=== PATIENT | female | born 1960 | race Caucasian/White ===

== ENCOUNTER 2018-07-24 05:19 | Inpatient (IN) | payer OTHER ==
[2018-07-23 09:22] LABS: BASOPHILS % 0.5 % (0.0-1.0); EOSINOPHILS # (AUTO) 0.2 (0.0-0.4); EOSINOPHILS % 2.5 % (0.0-6.0); HEMATOCRIT 43.2 % (34.2-44.1); HEMOGLOBIN 13.9 g/dL (12.0-16.0); LYMPHOCYTES # (AUTO) 1.5 (1.0-3.2); LYMPHOCYTES % 23.5 % (18.0-39.1); MEAN CORPUSCULAR HEMOGLOBIN 29.4 pg (28-32); MEAN CORPUSCULAR HGB CONC 32.2 g/dL (31-35); MEAN CORPUSCULAR VOLUME 91.3 fL (81-99); MONOCYTES # (AUTO) 0.5 (0.2-0.8); MONOCYTES % 7.6 % (4.4-11.3); NEUTROPHILS # (AUTO) 4.2 (2.1-6.9); NEUTROPHILS % 65.7 % (38.7-80.0); PLATELET COUNT 239 x10e3/uL (140-360); RED BLOOD COUNT 4.73 x10e6/uL (3.6-5.1); RED CELL DISTRIBUTION WIDTH 14.3 % (11.7-14.4)
[2018-07-23 10:25] LABS: BAND NEUTROPHILS % (MANUAL) 1 %; EOSINOPHILS % (MANUAL) 2 % (0-7); LYMPHOCYTES % (MANUAL) 19 % (19-48); MONOCYTES % (MANUAL) 3 % (3.4-9.0); NEUTROPHILS % (MANUAL) 74 % (40-74)
[2018-07-23 10:26] LABS: PLATELET ESTIMATE ADEQUATE; PLATELET MORPHOLOGY COMMENT NORMAL; RBC MORPHOLOGY COMMENT NORMAL
[~2018-07-24] VITALS: Ht 157.5 cm; Wt 85.3 kg
[~2018-07-24 05:19] MED LIST: DIOVAN80 MG PO
--- OUTSIDE RECORDS SUMMARY | 2018-07-24 05:22 | XMS REPORT | Continuity of Care Document ---
Author Author [facility] Interface Address Unknown Phone Unavailable Problems Problem Status Onset Date Classification Date Reported Comments Source LEFT LEG Active 11/23/2016 [facility] [place] Medications Medication Details Route Status Patient Instructions Ordering Provider Order Date Source Allergies, Adverse Reactions, Alerts Substance Category Reaction Severity Reaction type Status Date Reported Comments Source Immunizations Immunization Date Given Site Status Last Updated Comments Source Results Order Name Results Value Reference Range Date Interpretation Comments Source Vital Signs Vital Sign Value Date Comments Source Encounters Location Location Details Encounter Type Encounter Number Reason For Visit Attending Provider ADM Date DC Date Status Source [facility] [place] [facility] Patients [id number] Royal Maria De Jesus Barrios 01/27/2017 02/26/2017 [facility] [place] Procedures Procedure Code Date Perfomer Comments Source
--- OUTSIDE RECORDS SUMMARY | 2018-07-24 05:22 | XMS REPORT | Summary of Care ---
Author Author [facility] Address Unknown Phone Unavailable Encounter [facility]) [id number] Date(s): 01/27/17 - 02/25/17 [facility] Discharge Disposition: Home or Self Care Attending Physician: Royal Atkinson MD Vital Signs No data available for this section Problem List No data available for this section Allergies, Adverse Reactions, Alerts No data available for this section Medications No data available for this section Results No data available for this section Immunizations No data available for this section Procedures No data available for this section Social History No data available for this section Assessment and Plan No data available for this section
[2018-07-24] MEDS ORDERED: CELECOXIB 200 MG CAP ONE (06:05)
[2018-07-24] MEDS ORDERED: GABAPENTIN 300 MG CAP ONE (06:05)
[2018-07-24] MEDS ORDERED: DEXAMETHASONE SOD PHOS 10 MG/1 ML VIAL ONE (06:05)
[2018-07-24] MEDS ORDERED: VANCOMYCIN 1GM/NS 250 ML 250 ML ONE (06:06)
[2018-07-24] MEDS ORDERED: TRANEXAMIC ACID 1,000 MG/10 ML ML ONE (06:24)
[2018-07-24] MEDS ORDERED: BACITRACIN 50,000 UNIT VIAL ONE (06:25)
[2018-07-24] MEDS ORDERED: BUPIVACAINE 7.5MG/ML /DEXTROSE 82.5MG/ML 2 ML AMP INJ ONE (07:10)
[2018-07-24] MEDS ORDERED: LIDOCAINE HCL 2% LOCAL 20 ML VIAL ONE (07:10)
[2018-07-24] MEDS ORDERED: ROPIVACAINE 246.25 MG, EPINEPHRINE HCL 1:1000 0.5 MG, CLONIDINE HCL 0.08 MG, KETOROLAC ... INJ ONE ×5 (07:30)
[2018-07-24] MEDS ORDERED: SODIUM CHLORIDE 0.9% 1000ML 1,000 ML IV SCH (08:56)
[2018-07-24] MEDS ORDERED: PROMETHAZINE HCL (IM) 25 MG/ML VIAL IM PRN (09:00)
[2018-07-24] MEDS ORDERED: CELECOXIB 100 MG CAP PO SCH (09:00)
[2018-07-24] MEDS ORDERED: DIPHENHYDRAMINE HCL INJ 50 MG/ML VIAL IM/IV PRN (09:00)
[2018-07-24] MEDS ORDERED: KETOROLAC TROMETHAMINE 30 MG/ML VIAL IV PRN (09:00)
[2018-07-24] MEDS ORDERED: ONDANSETRON HCL INJ 2 MG/ML VIAL IV PRN (09:00)
[2018-07-24] MEDS ORDERED: ACETAMINOPHEN 650 MG SUPP PR PRN (09:00)
[2018-07-24] MEDS ORDERED: HYDROCODONE/APAP 7.5MG-325MG 1 EA TAB PO PRN (09:00)
[2018-07-24] MEDS ORDERED: DOCUSATE SODIUM 100 MG CAP PO PRN (09:00)
[2018-07-24] MEDS: ASPIRIN 325 MG TAB PO SCH ×2 (10:27→16:14)
--- NOTE | 2018-07-24 10:40 | Operative Report ---
DATE OF PROCEDURE: July 24, 2018 BRAKES INSPECTOR: Mario Brown PA-C The patient was brought to the operating room for induction of anesthesia. Throughout this case, my PA's assistance was necessary for retraction of soft tissue and positioning of the extremity. This allows for efficient and technically successful execution of the operation and is considered medically necessary. PREOPERATIVE DIAGNOSIS: Osteoarthritis, right hip. POSTOPERATIVE DIAGNOSIS: Osteoarthritis, right hip. PROCEDURE: Right total hip arthroplasty. INDICATIONS: The patient is a 58-year-old lady who has advanced osteoarthritis of her right hip. She has failed conservative management and would like to proceed with a right total hip replacement. The risks and benefits have been explained at length. Multiple questions have been answered. She has some concerns about metal allergy. We have encouraged her to get this worked up by her medical lab director. The specificity of this is vague at best. We have discussed the procedure. She states she understands and wishes to proceed. DESCRIPTION OF PROCEDURE: The patient was brought to the operating room and given a spinal anesthetic. She received prophylactic antibiotics and tranexamic acid in the holding area. She was positioned in the left lateral decubitus position. Her right hip was prepped and draped in a sterile manner. Her hip was noted to be quite severely contracted. She also has a BMI of 35 with the vast majority of her weight distributed at her pelvis. Added time and attention to detail were necessary due to her body habitus. A preoperative time out was performed. A posterior approach was made to the right hip. Hemostasis was obtained with electrocautery. A deep self-retaining Charnley retractor was placed. The posterior capsule was carefully exposed. Once again, it was noted to be quite severely contracted. The short external rotators and posterior capsule were released. The hip was dislocated, and an oscillating saw was used to resect the femoral head. Complete loss of articular cartilage was noted. Acetabular retractors were carefully placed. There was somewhat of an altered surgical field due to the deep adipose tissue. The true floor of the acetabulum was established with a 46-mm reamer. The aperture of the socket was somewhat tight. The socket was then sequentially reamed up to 51 mm. Hemispherical bleeding cancellous bone was accomplished. The hip was thoroughly irrigated with a shower-tip pulsatile lavage. A [employer] 52-mm outer diameter OsseoTi socket was then impacted into place. Fixation was augmented with a single 20-mm screw placed into the ilium. A highly crosslink polyethylene liner with a 36 mm inner diameter was then seated into place. Care was taken to make sure that there was no evidence of soft-tissue interposition. The wound was further irrigated. A portion of a 100-mL premixed pericapsular TEENA injection was placed into the surrounding soft tissue. The socket was packed with moistly soaked lap sponge. Attention was directed towards the proximal femur. A box cutting osteotome and taper pin reamer were used to establish entry to the femoral canal. The femoral canal was noted to be quite tight. This was expected from preoperative templating. The [employer] Taperloc broaches were impacted. A number 8 stem was seated to the appropriate level and had good canal fill and stability. Trial reductions were performed. A standard 36-mm head was felt to provide appropriate soft-tissue balancing, buddhism of limb length and stability through an arc of motion. The trial implants were removed. The hip was further irrigated with a pulsatile lavage. The remainder of the TEENA injection was placed into the more superficial subcutaneous tissue. The implants were seated, and a final reduction was performed. The posterior capsule was carefully repaired with interrupted #2 Ethibond stitches. The tensor fascia and gluteal fascia were closed with interrupted #2 Ethibond. The skin was closed with subcuticular Vicryl, Mastisol and Steri-Strips. A sterile Aquacel bandage was applied. She was returned to the supine position. She was transported to the recovery room in stable condition. Estimated blood loss was 100 mL. At the end of the procedure, all needle and sponge counts were correct. Job#: [id number]
[2018-07-24 10:43] VITALS: BP 119/74
[2018-07-24] MEDS: ACETAMINOPHEN 1000 MG/100 ML IV SCH ×2 (11:19→18:05)
--- NOTE | 2018-07-24 11:24 | Diagnostic Imaging Report ---
PROCEDURE:X-RAY PELVIS, AP VIEW COMPARISON:None. INDICATIONS:S/P HIP REPLACEMENT FINDINGS: There are no fractures, dislocations, lytic or blastic lesions. A right total hip arthroplasty with good position of the acetabular cup and femoral shaft prosthesis. The bones are well-mineralized. Air within the soft tissues is present. CONCLUSION: Status post right hip replacement. Brandin Roberto D.O. Dictated by: Brandin Roberto D.O. on 07/24/2018 at 11:32 Electronically approved by: Brandin Roberto D.O. on 07/24/2018 at 11:32
[2018-07-24 12:44] VITALS: BP 119/76
[2018-07-24] MEDS: HYDROCODONE/APAP 5MG-325MG TAB PO PRN (14:01)
[2018-07-24] MEDS: CELECOXIB 200 MG CAP PO SCH (16:14)
[2018-07-24] MEDS: VANCOMYCIN 1GM/NS 250 ML 250 ML IV SCH (18:04)
[2018-07-24] MEDS ORDERED: MIDAZOLAM HCL 2 MG/2 ML VIAL ONE (18:54)
[2018-07-24] MEDS ORDERED: FENTANYL CITRATE/PF 100MCG/2 ML INJ ONE (18:54)
--- NOTE | 2018-07-24 19:05 | Consultation ---
DATE OF CONSULTATION: July 24, 2018 REASON FOR CONSULTATION: Medical management. HISTORY OF PRESENT ILLNESS: This is a 58-year-old white woman, who has a history of right hip osteoarthritis. Today, patient underwent successful right total hip arthroplasty that was performed by her orthopedic surgery, namely Dr. Dequan Ridley. Patient states that her pain is only somewhat controlled with oral hydrocodone. Patient voices no other complaints. Patient states she did ambulate up to 300 feet today with therapy after surgery. REVIEW OF SYSTEMS: GENERAL: Weight has been stable. No fever or chills. HEENT: No headaches, no visual changes. CARDIOVASCULAR/RESPIRATORY: No chest pain. No shortness of breath or cough. GI: No nausea, vomiting, diarrhea, or constipation. : No UTI symptoms. NEUROMUSCULAR: No limb weakness or numbness. EXTREMITIES: Patient denies any left hip pain. Patient states at times she has right knee joint pain though. PAST MEDICAL HISTORY: 1. Hypertension. 2. Mild obesity. 3. Ulcerative colitis. SURGICAL HISTORY: 1. Multiple colonoscopies. 2. section. 3. Right total hip arthroplasty today. SOCIAL HISTORY: This woman is single. She lives alone. 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 No history of tobacco use. She drinks alcohol socially. FAMILY HISTORY: Mother had hip degenerative joint disease. Her mother of myocardial infarction at age 59. HOME MEDICATIONS: Valsartan 80 mg daily. ALLERGIES: 1. PENICILLIN. 2. PURIFIED PROTEIN DERIVATIVE (TUBERCULIN). PHYSICAL EXAMINATION: GENERAL: She is awake, alert, and fully oriented, in no distress, very pleasant and cooperative with exam. Her adult sister is at bedside. VITAL SIGNS: Height is 5 feet 2 inches. Weight is 188 pounds. BMI 34. Blood pressure is 119/76, pulse is 78, respiratory rate is 16, temperature 97.5, oxygen saturation 98% on room air. INTEGUMENT: Skin is warm and dry. No pallor, jaundice, or diaphoresis. HEENT: Anicteric sclerae with moist mucous membranes. NECK: Supple. CARDIOVASCULAR: Regular rate and rhythm with an S4 gallop. LUNGS: No rales, no rhonchi, no wheeze. ABDOMEN: Obese and benign. EXTREMITIES: No edema or deformity. Patient has compression stockings in place. She also has sequential compression devices on her bilateral feet. Her right hip wound is currently dressed. NEUROLOGIC: Intact. No gross deficits appreciated. DIAGNOSES: 1. Status post right total hip arthroplasty. 2. Hypertension. 3. Obesity. Body mass index 34. 4. Ulcerative colitis. PLAN: 1. Will follow hemoglobin and hematocrit. 2. Stop intravenous fluids. 3. Pain control. 4. Continue home medications for blood pressure control. 5. Mobilize with physical therapy. 6. Recommend incentive spirometry use, 10 inspirations every hour while awake. I would like to thank Dr. Ridley for this generous consult. Job#: [id number] DR LOPEZ
[2018-07-24] MEDS ORDERED: PHENYLEPHRINE HCL 1% 10 MG/ML VIAL ONE (19:28)
[2018-07-24] MEDS ORDERED: PROPOFOL IV EMULSION 10 MG/ML 20 ML VIAL ONE (19:28)
[2018-07-24] MEDS ORDERED: EPHEDRINE SULFATE INJ 50 MG/10 ML SYR ONE (19:28)
[2018-07-24] MEDS ORDERED: VASOPRESSIN INJ 20 UNIT/ML VIAL ONE (19:28)
[2018-07-24] MEDS ORDERED: LIDOCAINE HCL 2% LOCAL INJ 5 ML SDV VIAL INJ ONE (19:28)
[2018-07-24] MEDS ORDERED: SEVOFLURANE INHAL SOLN 250 ML PEN BTL ONE (19:28)
[2018-07-24] MEDS ORDERED: ONDANSETRON HCL INJ 2 MG/ML VIAL ONE (19:28)
[2018-07-24 20:00] VITALS: BP 111/58
[2018-07-24 20:05] VITALS: BP 111/58
[2018-07-24] MEDS ORDERED: ZOLPIDEM TARTRATE 5 MG TAB PO PRN (21:00)
[2018-07-24] MEDS: HYDROCODONE/APAP 10MG-325MG TAB PO PRN (22:20)
[2018-07-25] VITALS: BP 106/59
[2018-07-25 05:00] VITALS: BP 94/52
[2018-07-25 05:49] LABS: BASOPHILS % 0.1 % (0.0-1.0); EOSINOPHILS % 0.1 % (0.0-6.0); HEMATOCRIT 31.1 % (34.2-44.1); LYMPHOCYTES # (AUTO) 1.8 (1.0-3.2); LYMPHOCYTES % 13.3 % (18.0-39.1); MEAN CORPUSCULAR HEMOGLOBIN 29.2 pg (28-32); MEAN CORPUSCULAR HGB CONC 32.2 g/dL (31-35); MEAN CORPUSCULAR VOLUME 90.7 fL (81-99); MONOCYTES # (AUTO) 0.8 (0.2-0.8); NEUTROPHILS % 80.1 % (38.7-80.0); PLATELET COUNT 204 x10e3/uL (140-360); RED BLOOD COUNT 3.43 x10e6/uL (3.6-5.1); RED CELL DISTRIBUTION WIDTH 14.1 % (11.7-14.4)
[2018-07-25] MEDS: ACETAMINOPHEN 1000 MG/100 ML IV SCH ×2 (06:00)
[2018-07-25] MEDS: VANCOMYCIN 1GM/NS 250 ML 250 ML IV SCH (06:24)
[2018-07-25 06:26] LABS: ANION GAP 11.1 mmol/L (8-16); BLOOD UREA NITROGEN 11 mg/dL (7-26); BUN/CREATININE RATIO 14 (6-25); CALCIUM 8.5 mg/dL (8.4-10.2); CARBON DIOXIDE 24 mmol/L (22-29); CHLORIDE 106 mmol/L (98-107); CREATININE, SERUM 0.77 mg/dL (0.57-1.11); EST GLOMERULAR FILTRATION RATE > 60 ML/MIN (60-); GLUCOSE 118 mg/dL (74-118); POTASSIUM 4.1 mmol/L (3.5-5.1); SODIUM 137 mmol/L (136-145)
[2018-07-25 08:00] VITALS: BP 120/71
[2018-07-25] MEDS: CELECOXIB 200 MG CAP PO SCH (08:14)
[2018-07-25] MEDS: ASPIRIN 325 MG TAB PO SCH (08:14)
[2018-07-25] MEDS: HYDROCODONE/APAP 10MG-325MG TAB PO PRN (08:15)
[2018-07-25] MEDS ORDERED: ACETAMINOPHEN 1000 MG/100 ML IV PRN (09:00)
[2018-07-25] MEDS ORDERED: VALSARTAN 80 MG TAB PO SCH (09:00)
[2018-07-25] MEDS ORDERED: ASPIRIN325 MG PO (09:08)
[2018-07-25] MEDS ORDERED: NORCO 7.5-3251 EACH PO (09:33)
[2018-07-25 09:51] VITALS: BP 120/71
[2018-07-25] MEDS: HYDROCODONE/APAP 5MG-325MG TAB PO PRN (11:16)
--- NOTE | 2018-09-12 16:59 | Discharge Summary ---
CHIEF COMPLAINT: Right hip pain. HISTORY OF PRESENT ILLNESS: Patient is a 58-year-old female who complains of right hip pain for over 10 years. She states the pain has gotten progressively worse over the last few years. Her x-rays are consistent with end-stage osteoarthritis of the right hip. The risks and benefits of a right total hip replacement were explained. The patient states she understands and wishes to proceed. HOSPITAL COURSE: Patient underwent a right total hip replacement without complications. She was then transferred to the recovery room and the floor in stable condition. She was followed by Dr. Hurd for postop medical management. She remained stable throughout hospital stay. She progressed nicely with physical therapy and she was able to be discharged home on postop day one. PRINCIPAL DIAGNOSIS: Osteoarthritis of the right hip. PRINCIPAL PROCEDURE: A right total hip replacement. DISCHARGE INSTRUCTIONS: The patient was discharged home with home health and physical therapy arranged. She could be weightbearing as tolerated with a rolling walker. She was to follow posterior precautions. She was to resume her home medications as directed. She was to take aspirin twice a day for thromboprophylaxis. She was to follow up in our office in 8 to 10 days. Dictated by Mario Brown PA-C SHAWNA LEWIS MD Job#: [id number]
== END 2018-07-25 11:59 | disposition home health service (06) | DRG 470 ==
LOC: OR 05:19 → PACU V 08:59 → MED/SURG 10:02
PROVIDERS: ADMIT Specialist; ATTEND Specialist
PROC: 0SRC06A Replacement of Right Knee Joint with Oxidized Zirconium on Polyethylene Synthetic Substitute, Uncemented, Open Approach (ICD-10-PCS; principal; 2018-07-24 07:30)
DX: M16.11 Unilateral primary osteoarthritis, right hip (principal); K51.90 Ulcerative colitis, unspecified, without complications; E66.01 Morbid (severe) obesity due to excess calories; Z68.34 Body mass index [BMI] 34.0-34.9, adult; M17.0 Bilateral primary osteoarthritis of knee
CPT/HCPCS: 36415; 72170; 80048; 85025; 86850; 86900; 86920; 93005; C1713; J0171; J1100; J1885; J2001; J2250; J2370; J2405; J2795; J3370; J7030